=== PATIENT | male | born 1950 | race Hispanic/Latino ===

== ENCOUNTER 2017-10-23 06:43 | Inpatient (IN) | payer MEDICARE ==
[~2017-10-23 06:43] MED LIST: ANCEF/STERILE WATER 2 GM/20 ML 2 GM/20 ML SYRINGE IV NR
[2017-10-23] MEDS ORDERED: VERSED IV NR (09:00)
[2017-10-23] MEDS ORDERED: NACL 0.9% 1000 ML 1,000 ML IV SCH ×2 (09:00)
[2017-10-23] MEDS ORDERED: DILAUDID IV PRN ×3 (09:00→14:38)
--- NOTE | 2017-10-23 09:26 | Anesthesia Day of Surgery ---
Anesthesia Day of Surgery - Day of Surgery Patient Examined: Yes Patient H&P Reviewed: Yes Patient is NPO: Yes
--- NOTE | 2017-10-23 09:26 | Anesthesia Consultation ---
Anesthesia Consult and Med Hx Date of service: 10/23/17 - Airway Anesthetic Teeth Evaluation: Caps ROM Head & Neck: Adequate Mental/Hyoid Distance: Adequate Mallampati Class: Class III Intubation Access Assessment: Probably Good - Pulmonary Exam CTA: Yes - Cardiac Exam Cardiac Exam: RRR - Pre-Operative Health Status ASA Pre-Surgery Classification: ASA3 Proposed Anesthetic Plan: General - Pulmonary Hx Smoking: Yes (CIGARS) Hx Sleep Apnea: Yes (DX SEVERE SLEEP APNEA WITH CPAP USE.) - Cardiovascular System Hx Hypertension: No - Central Nervous System CVA: Yes (CVS-VS- TIA LAST WEEK- NO DEFICIT) Hx Back Pain: Yes (NECK AND BACK PAIN) - Other Systems Hx Alcohol Use: Yes (LIQUOR AND BEER QD) Hx Cancer: No
[2017-10-23] MEDS ORDERED: XYLOCAINE MPF 2% ONE (09:31)
[2017-10-23] MEDS ORDERED: AMIDATE IV ONE ×2 (09:31→15:05)
[2017-10-23] MEDS ORDERED: DILAUDID ONE (09:32)
[2017-10-23] MEDS ORDERED: SUBLIMAZE ONE ×2 (09:56→11:59)
[2017-10-23] MEDS ORDERED: PEPCID PO NR (10:00)
[2017-10-23] MEDS ORDERED: LACTATED RINGERS 1,000 ML IV SCH (10:00)
[2017-10-23 10:09] LABS: Basophils # (Auto) 0.1 K/mm3 (0.0-0.1); Eosinophils % (Auto) 0.7 % (0.0-4.3); Hemoglobin 16.8 gm/dl (11.8-15.2); Lymphocytes # (Auto) 1.3 K/mm3 (1.2-5.4); Lymphocytes % (Auto) 21.2 % (13.4-35.0); Mean Corpuscular HGB Conc 35 % (32-34); Mean Corpuscular Hemoglobin 31 pg (28-32); Mean Corpuscular Volume 89 fl (84-94); Monocytes # (Auto) 0.6 K/mm3 (0.0-0.8); Monocytes % (Auto) 10.5 % (0.0-7.3); Platelet Count 155 K/mm3 (140-440); Red Blood Count 5.39 M/mm3 (3.65-5.03); Red Cell Distribution Width 13.9 % (13.2-15.2)
[2017-10-23 10:20] LABS: BUN/Creatinine Ratio 18; Blood Urea Nitrogen 18 mg/dL (9-20); Calcium 9.2 mg/dL (8.4-10.2); Hemolysis Index 41
[2017-10-23] MEDS ORDERED: HEPARIN 10,000 UNITS/10 ML ONE (11:23)
[2017-10-23] MEDS ORDERED: RIFADIN ONE (11:23)
[2017-10-23] MEDS ORDERED: XYLOCAINE 1% 20 mL ONE (11:23)
[2017-10-23] MEDS ORDERED: MARCAINE-EPI 0.5%-1:200,000 INFILTRATI ONE ×3 (11:23→13:39)
[2017-10-23] MEDS ORDERED: XYLOCAINE 1% MPF 5 mL ONE (11:23)
[2017-10-23] MEDS ORDERED: PROTAMINE SULFATE ONE (11:23)
[2017-10-23] MEDS ORDERED: GELFOAM TP ONE ×2 (11:23→13:38)
[2017-10-23] MEDS ORDERED: THROMBIN (BOVINE) TP ONE ×2 (11:24→13:38)
[2017-10-23] MEDS ORDERED: NACL 0.9% 500 ML 500 ML ONE (11:24)
[2017-10-23] MEDS ORDERED: DIPRIVAN 10 MG/ML IV ONE ×2 (11:50→13:15)
[2017-10-23] MEDS ORDERED: RIFADIN IV ONE (13:38)
[2017-10-23] MEDS ORDERED: NACL 0.9% IR ONE (13:39)
[2017-10-23] MEDS ORDERED: HEPARIN 10,000 UNITS/10 ML 2,000 UNIT in NACL 0.9% 500 ML 500 ML IR ONE (13:39)
[2017-10-23] MEDS ORDERED: ZEMURON IV ONE (14:00)
[2017-10-23] MEDS ORDERED: PROTAMINE SULFATE IV ONE (14:01)
[2017-10-23] MEDS ORDERED: ZOFRAN ONE (14:08)
[2017-10-23] MEDS ORDERED: ZOFRAN IV PRN (14:38)
[2017-10-23] MEDS ORDERED: NARCAN 0.4 MG/1 ML IV PRN (14:38)
[2017-10-23] MEDS ORDERED: NORCO 5/325 PO PRN (14:38)
[2017-10-23] MEDS ORDERED: PROVENTIL IH ONE ×2 (14:45→14:48)
[2017-10-23] MEDS ORDERED: XYLOCAINE 2% INFILTRATI ONE ×2 (14:47→14:49)
--- NOTE | 2017-10-23 14:55 | Post Operative Note ---
Pre-op diagnosis: symptomatic left carotid stenosis Post-op diagnosis: same Findings: Ulcerated plaque with subacute hemorrhage in the left internal carotid artery with greater than 90% diameter reduction. Procedure: Left carotid endarterectomy with Dacron patch closure Anesthesia: CRISTIAN, local Surgeon: ABHAY COOPER Manager [employer]: JAIDEN PEARSON Estimated blood loss: 50-100ml Pathology: list (plaque) Specimen disposition: to lab Condition: stable Disposition: PACU
--- NOTE | 2017-10-23 14:58 | Operative Report ---
Operative Report Operative Report: Date of procedure: 10/23/2017 Pre-operative diagnosis: Severe left carotid artery stenosis with symptoms Post-operative diagnosis: Same Procedure name(s): 1. Left carotid endarterectomy with Dacron patch closure 2. Completion duplex ultrasound Surgeon: Juan Stanford MD Flanging Operator: [Michele Bonilla, BONIFACIO] Anesthesia: Gen. with endotracheal tube EBL: [<100 mL] Operative indication: Severe left carotid artery stenosis with ipsilateral symptoms. Findings: Severe left carotid artery stenosis, ulcerated markedly stenotic plaque with greater than 90% diameter reduction at the internal carotid artery. Procedure: The patient was placed on the table in the supine position. Appropriate anesthesia was given. The area of the neck was prepped with ChloraPrep solution and draped in usual sterile fashion. Ultrasound guidance was used to identify the carotid bifurcation. The bifurcation was marked on the skin. The patient has a remarkably thick neck. A linear incision was made along the anterior border of the sternocleidomastoid muscle. Dissection was carried out to identify the common carotid artery, external carotid artery, and the internal carotid artery. These vessels were surrounded with vessel loops. All nerve structures were spared. The patient was given 5000 units of intravenous heparin and 3 minutes were allowed to pass after the heparin was given. The systolic blood pressure was maintained at greater than 130 mm of mercury throughout the procedure. The internal carotid artery, the common carotid artery, and external carotid arteries were occluded. An arteriotomy was made in the common carotid artery and extended into the internal carotid artery. Backbleeding was checked from the internal carotid artery and found to be pulsatile. No shunt was placed. Standard endarterectomy technique was used to remove the plaque from the base of the internal carotid artery, the common carotid artery, and the external carotid artery. Meticulous care was taken to remove all residual debris from the artery. A Dacron patch was selected and tailored appropriately. The patch was sewn in using 6-0 Prolene suture. Prior to completion, the vessel was flushed and vented to remove any air or debris from the lumen. The patch was completed. Flow was started first into the external carotid artery and then into the internal carotid artery. Hemostasis was obtained. A completion duplex ultrasound was done. No intraluminal irregularities were identified. Flow velocities were appropriate. Completion of hemostasis was achieved. The wound was infiltrated with half percent Marcaine with epinephrine. Closure was done with 3-0 Vicryl on the platysma. The skin was closed with 4-0 subcuticular PDS suture. Dermabond was applied to the wound. Upon awakening, the patient was able to move all 4 extremities to command. The patient was taken from the operating room to the recovery room in stable condition. Sponge, needle, and instrument counts were reported as correct. The patient tolerated the procedure well.
[2017-10-23] MEDS ORDERED: INTROPIN DRIP 800 MG/D5W 250 ML 800 MG/250 ML BAG IV SCH (15:00)
[2017-10-23] MEDS ORDERED: NIPRIDE 50 MG in D5W 248 ML IV SCH (15:00)
[2017-10-23] MEDS: NACL 0.9% 1000 ML 1,000 ML IV SCH (17:14)
[2017-10-23] MEDS: ANCEF/NS 1 GM/50 ML 1 GM/50 ML BAG IV SCH (17:16)
[2017-10-23] MEDS: COLACE PO SCH (22:29)
[2017-10-24] MEDS: ANCEF/NS 1 GM/50 ML 1 GM/50 ML BAG IV SCH (03:01)
[2017-10-24] MEDS: NACL 0.9% 1000 ML 1,000 ML IV SCH (03:32)
--- NOTE | 2017-10-24 09:59 | Consultation ---
History of Present Illness - Reason for Consult Consult date: 10/24/17 Post-op Care Requesting physician: ABHAY COOPER - History of Present Illness 67 y/o male status post left CEA repair admitted to ICU for post-op management. No acute events overnight. patient has been out of chair to bed but not sure if he has ambulated in the hallways. BP stable. Past History Past Medical History: hyperlipidemia, other (Cartoid artery disease) Medications and Allergies Allergies Allergy/AdvReac Type Severity Reaction Status Date / Time Sulfa (Sulfonamide Allergy Unknown Verified 10/22/17 16:52 Antibiotics) [id number] Reductase AdvReac SEVERE Verified 10/22/17 16:52 Inhibitor MUSCLE WEAKNESS Home Medications Medication Instructions Recorded Confirmed Last Taken Type Aspirin [Lo-Dose Aspirin EC] 81 mg PO DAILY 10/22/17 10/22/17 10/22/17 History Clopidogrel Bisulfate [Plavix] 75 mg PO DAILY 10/22/17 10/22/17 10/22/17 History Ezetimibe [Zetia] 10 mg PO QDAY 10/22/17 10/23/17 10/21/17 History Heparin 10,000 unit SUB-Q TID 10/22/17 10/22/17 10/22/17 History Naproxen Sodium [Aleve] 220 mg PO PRN PRN 10/22/17 10/23/17 10/19/17 History HYDROcodone/APAP 5-325 [[place] 1 each PO Q6HR PRN #30 tablet 10/23/17 Unknown Rx 5/325] oxyCODONE /ACETAMINOPHEN [Percocet 1 tab PO Q6HR PRN #20 tablet 10/24/17 Unknown Rx 5/325] Active Meds: Active Medications Acetaminophen/Hydrocodone Bitart ([place] 5/325) 1 each PO Q6H PRN PRN Reason: Pain, Moderate (4-6) Aspirin (Halfprin Ec) 81 mg PO DAILY JOELLEN Clopidogrel Bisulfate (Plavix) 75 mg PO DAILY JOELLEN Docusate Sodium (Colace) 100 mg PO BID [facility] Last Admin: 10/23/17 22:29 Dose: 100 mg Ezetimibe (Zetia) 10 mg PO QDAY JOELLEN Hydromorphone HCl (Dilaudid) 0.25 mg IV Q3H PRN PRN Reason: Pain, Moderate (4-6) Hydromorphone HCl (Dilaudid) 0.5 mg IV Q3H PRN PRN Reason: Pain , Severe (7-10) Dopamine HCl/Dextrose (Intropin Drip 800 Mg/D5w 250 Ml) 800 mg in 250 mls @ 4.559 mls/hr IV TITR JOELLEN; Protocol Sodium Nitroprusside 50 mg/ (Dextrose) 250 mls @ 9.11 mls/hr IV TITR JOELLEN; Protocol Sodium Chloride (Nacl 0.9% 1000 Ml) 1,000 mls @ 100 mls/hr IV DIRECT JOELLEN Last Admin: 10/24/17 03:32 Dose: 100 mls/hr Naloxone HCl (Narcan 0.4 Mg/1 Ml) 0.1 mg IV Q2MIN PRN PRN Reason: Res Rate </= 8 or 02 SAT < 92% Ondansetron HCl (Zofran) 4 mg IV Q8H PRN PRN Reason: Nausea And Vomiting Review of Systems All systems: negative Exam - Constitutional Vitals: Temp Pulse Resp BP Pulse Ox 97.6 F 57 L 12 99/53 98 10/24/17 08:00 10/24/17 07:00 10/24/17 07:00 10/24/17 07:00 10/24/17 09:36 General appearance: Present: no acute distress, well-nourished - EENT Eyes: Present: PERRL, EOM intact ENT: hearing intact, clear oral mucosa, dentition normal - Neck Neck: Present: supple, other (post surgical changes on left) - Respiratory Respiratory effort: normal Respiratory: bilateral: CTA - Cardiovascular Rhythm: regular Heart Sounds: Present: S1 & S2 - Extremities Extremities: no ischemia - Abdominal General gastrointestinal: Present: soft, non-tender, normal bowel sounds Male genitourinary: Present: deferred - Rectal Rectal Exam: deferred - Musculoskeletal Musculoskeletal: strength equal bilaterally - Psychiatric Psychiatric: appropriate mood/affect Results - Labs CBC & Chem 7: 10/23/17 09:30 10/23/17 09:30 Labs: Abnormal lab results 10/23/17 10/23/17 Range/Units 09:30 09:30 RBC 5.39 H (3.65-5.03) M/mm3 Hgb 16.8 H (11.8-15.2) gm/dl Hct 48.0 H (35.5-45.6) % MCHC 35 H (32-34) % [place] % (Auto) 10.5 H (0.0-7.3) % Glucose 118 H (75-100) mg/dL Assessment and Plan 67 y/o male with left CEA 1. stable hemodynamics 2. No pulmonary issues 3. Await vascular eval for either transfer or discharge home
[2017-10-24] MEDS ORDERED: ZETIA PO SCH (10:00)
[2017-10-24] MEDS ORDERED: HALFPRIN EC PO SCH (10:00)
[2017-10-24] MEDS ORDERED: PLAVIX PO SCH (10:00)
[2017-10-24] MEDS: COLACE PO SCH (10:12)
--- NOTE | 2017-10-24 10:16 | Consultation ---
History of Present Illness Consult date: 10/24/17 Consult reason: post op evaluation History of present illness: Patient is s/p left CEA. He denies chest pain or shortness of breath. He is sitting up in chair this morning with no distress Past History Past Medical History: hyperlipidemia, PVD Past Surgical History: Other (CEA) Social history: no significant social history Family history: no significant family history Medications and Allergies Allergies Allergy/AdvReac Type Severity Reaction Status Date / Time Sulfa (Sulfonamide Allergy Unknown Verified 10/22/17 16:52 Antibiotics) Savtijg-Lhg-Fxp Reductase AdvReac SEVERE Verified 10/22/17 16:52 Inhibitor MUSCLE WEAKNESS Home Medications Medication Instructions Recorded Confirmed Last Taken Type Aspirin [Lo-Dose Aspirin EC] 81 mg PO DAILY 10/22/17 10/22/17 10/22/17 History Clopidogrel Bisulfate [Plavix] 75 mg PO DAILY 10/22/17 10/22/17 10/22/17 History Ezetimibe [Zetia] 10 mg PO QDAY 10/22/17 10/23/17 10/21/17 History Heparin 10,000 unit SUB-Q TID 10/22/17 10/22/17 10/22/17 History Naproxen Sodium [Aleve] 220 mg PO PRN PRN 10/22/17 10/23/17 10/19/17 History HYDROcodone/APAP 5-325 [[place] 1 each PO Q6HR PRN #30 tablet 10/23/17 Unknown Rx 5/325] Active Meds: Active Medications Acetaminophen/Hydrocodone Bitart ([place] 5/325) 1 each PO Q6H PRN PRN Reason: Pain, Moderate (4-6) Aspirin (Halfprin Ec) 81 mg PO DAILY JOELLEN Clopidogrel Bisulfate (Plavix) 75 mg PO DAILY [facility] Docusate Sodium (Colace) 100 mg PO BID [facility] Last Admin: 10/23/17 22:29 Dose: 100 mg Ezetimibe (Zetia) 10 mg PO QDAY JOELLEN Hydromorphone HCl (Dilaudid) 0.25 mg IV Q3H PRN PRN Reason: Pain, Moderate (4-6) Hydromorphone HCl (Dilaudid) 0.5 mg IV Q3H PRN PRN Reason: Pain , Severe (7-10) Dopamine HCl/Dextrose (Intropin Drip 800 Mg/D5w 250 Ml) 800 mg in 250 mls @ 4.559 mls/hr IV TITR JOELLEN; Protocol Sodium Nitroprusside 50 mg/ (Dextrose) 250 mls @ 9.11 mls/hr IV TITR JOELLEN; Protocol Sodium Chloride (Nacl 0.9% 1000 Ml) 1,000 mls @ 100 mls/hr IV DIRECT JOELLEN Last Admin: 10/24/17 03:32 Dose: 100 mls/hr Naloxone HCl (Narcan 0.4 Mg/1 Ml) 0.1 mg IV Q2MIN PRN PRN Reason: Res Rate </= 8 or 02 SAT < 92% Ondansetron HCl (Zofran) 4 mg IV Q8H PRN PRN Reason: Nausea And Vomiting Review of Systems All systems: negative Physical Examination Vital Signs Temp Pulse Resp BP Pulse Ox 98.7 F 65 20 159/79 97 10/23/17 09:20 10/23/17 09:20 10/23/17 09:20 10/23/17 09:20 10/23/17 09:20 General appearance: no acute distress HEENT: Positive: PERRL Neck: Positive: neck supple Cardiac: Positive: Reg Rate and Rhythm, Systolic Murmur Lungs: Positive: Normal Exam Abdomen: Positive: Soft Extremities: Absent: edema Results 10/23/17 09:30 10/23/17 09:30 Comprehensive Metabolic Panel 10/23/17 Range/Units 09:30 Sodium 140 (137-145) mmol/L Potassium 4.1 (3.6-5.0) mmol/L Chloride 102.8 (98-107) mmol/L Carbon Dioxide 22 (22-30) mmol/L BUN 18 (9-20) mg/dL Creatinine 1.0 (0.8-1.5) mg/dL Glucose 118 H (75-100) mg/dL Calcium 9.2 (8.4-10.2) mg/dL - EKG Interpretation EKG: sinus rhythm Assessment and Plan s/p left CEA Postoperative course - uneventful Hyperlipidemia on zetia Echo 10/21/2017 at [place] - Normal LVEF 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
--- NOTE | 2017-10-24 12:34 | Discharge Summary ---
Providers - Providers Date of Admission: 10/23/17 08:06 Date of discharge: 10/24/17 Attending physician: ABHAY COOPER 10/23/17 14:38 Consult to Physician [CONS] Routine Comment: Consulting Provider: NEHEMIAH SUNG Physician Instructions: Reason For Exam: ICU admission 10/23/17 15:30 Consult to Physician [CONS] Routine Comment: Consulting Provider: GA PALMER Physician Instructions: Reason For Exam: Post op cardiac f/u Primary care physician: YAYO PARDO Hospitalization Reason for admission: carotid stenosis Condition: Good Hospital course: Patient is postop day 1 status post left carotid endarterectomy. His incision is soft with only minimal subcutaneous bruising. Patient is breathing easily and swallowing solid foods without difficulty at time of examination. He is ambulated around the unit without difficulty. No significant complaints of pain. He did experience a brief episode of headache overnight which has resolved. His blood pressure is within normal limits. Disposition: DC-30 STILL A PATIENT Core Measure Documentation - Palliative Care Palliative Care/ Comfort Measures: Not Applicable - Core Measures Any of the following diagnoses?: none Exam - Constitutional Vitals: Temp Pulse Resp BP Pulse Ox 97.6 F 50 L 22 133/59 98 10/24/17 08:00 10/24/17 08:00 10/24/17 09:01 10/24/17 09:01 10/24/17 09:36 General appearance: Present: no acute distress - EENT Eyes: Present: PERRL, EOM intact ENT: hearing intact - Neck Neck: Present: supple, normal ROM, other (left CEA post [place]) - Respiratory Respiratory effort: normal - Cardiovascular Rhythm: regular - Extremities Extremities: no ischemia - Abdominal General gastrointestinal: Present: deferred Male genitourinary: Present: deferred - Rectal Rectal Exam: deferred - Psychiatric Psychiatric: appropriate mood/affect, cooperative - Neurologic Neurologic: no focal deficits Plan Activity: advance as tolerated Weight Bearing Status: Weight Bear as Tolerated Diet: regular Wound: keep clean and dry, per your surgeon's advice Follow up with: YAYO PARDO MD [Primary Care Provider] - 7 Days Prescriptions: HYDROcodone/APAP 5-325 [[place] 5/325] 1 each PO Q6HR PRN #30 tablet PRN Reason: Pain oxyCODONE /ACETAMINOPHEN [Percocet 5/325] 1 tab PO Q6HR PRN #20 tablet PRN Reason: Pain
[2017-10-24 12:51] VITALS: BP 133/66
--- NOTE | 2017-10-26 09:01 | Vascular Lab Report ---
INTRAOPERATIVE CAROTID ARTERY DUPLEX Reason for exam: Completion of carotid endarterectomy Comments on the left: The common and internal carotid arteries are patent without evidence of intraluminal irregularities. Flow velocities appear to be appropriate. No obvious technical defects at the endarterectomy site appreciated. Impression: No obvious technical imperfections at the endarterectomy site.
== END 2017-10-24 13:19 | disposition home or self-care (01) | DRG 39 ==
LOC: 3A 08:06 → CC1 19:35
PROVIDERS: ADMIT Surgery Vascular Surgery; ATTEND Surgery Vascular Surgery
PROC: 03CL0ZZ Extirpation of Matter from Left Internal Carotid Artery, Open Approach (ICD-10-PCS; principal; 2017-10-23)
PROC: 03CJ0ZZ Extirpation of Matter from Left Common Carotid Artery, Open Approach (ICD-10-PCS; 2017-10-23)
PROC: 03CN0ZZ Extirpation of Matter from Left External Carotid Artery, Open Approach (ICD-10-PCS; 2017-10-23)
PROC: 03UJ0JZ Supplement Left Common Carotid Artery with Synthetic Substitute, Open Approach (ICD-10-PCS; 2017-10-23)
PROC: 03UL0JZ Supplement Left Internal Carotid Artery with Synthetic Substitute, Open Approach (ICD-10-PCS; 2017-10-23)
PROC: 03UN0JZ Supplement Left External Carotid Artery with Synthetic Substitute, Open Approach (ICD-10-PCS; 2017-10-23)
DX: I65.22 Occlusion and stenosis of left carotid artery (principal); F17.290 Nicotine dependence, other tobacco product, uncomplicated; G47.30 Sleep apnea, unspecified; E78.5 Hyperlipidemia, unspecified; Z86.73 Personal history of transient ischemic attack (TIA), and cerebral infarction without residual deficits; Z88.8 Allergy status to other drugs, medicaments and biological substances; Z88.2 Allergy status to sulfonamides; Z79.01 Long term (current) use of anticoagulants; Z79.899 Other long term (current) drug therapy
CPT/HCPCS: 36415; 36620; 80048; 85025; 88304; 88311; A4649; C1768; J0690; J1170; J1644; J2250; J2405; J2704; J2720; J3010; J3490; J7030; J7040